=== PATIENT | female | born 1985 ===

== ENCOUNTER 2017-09-05 05:23 | Day surgery (SDC) | payer BC ==
[2017-08-26 12:40] VITALS: BMI 37.0
[~2017-09-05] VITALS: Ht 154.9 cm; Wt 89.5 kg
[~2017-09-05 05:23] MED LIST: ALPR1TAB3 PO; ALROPS OP; ARMO150T4 PO; CLR10 PO; CRFL PO; CYCL0.052 OP; CYCL5TAB PO; DICL1GEL12 TOP; DICY10CA55 PO; DPH/ PO; DULO60CA44 PO; ERGO500037 PO; ESCI10TA17 PO; FLUT0.15; LEVO25TA5 PO; LNS1 PO; MISC4CAP PO; NF656 TOP; OLOP0.6S NAE; OXYC-57 PO; PANT40TA PO; RANI150T3 PO; TRAZ50TA35 PO
[2017-09-05 05:50] VITALS: BP 113/65; PULSE 89; TEMP 36.9; O2SAT 97; Ht 154.9 cm; Wt 89.5 kg
[2017-09-05] MEDS ORDERED: CEFAZOLIN 2000MG IV PUSH 10 ML IV SCH (06:00)
[2017-09-05] MEDS ORDERED: LACTATED RINGER'S 1000ML 1,000 ML IV SCH ×2 (06:00)
[2017-09-05] MEDS ORDERED: BUPIVACAINE 0.5 % 5 MG/1 ML MPF 30ML VIAL ONE (06:40)
[2017-09-05] MEDS ORDERED: EpINEphrine INJ 1MG/ML AMP 1 MG/ML AMP ONE (06:41)
[2017-09-05] MEDS ORDERED: LIDOCAINE HCL 2% 2 ML VIAL (20MG/ML) ONE (06:47)
[2017-09-05] MEDS ORDERED: ROCURONIUM BROMIDE 10 MG/ML 5 ML VIAL IV ONE (06:47)
[2017-09-05] MEDS ORDERED: PROPOFOL IV EMULSION 10 MG/ML 20 ML VIAL IV ONE (06:47)
[2017-09-05] MEDS ORDERED: FENTANYL CITRATE INJ 50 MCG/1 ML 2 ML VIAL ONE (06:48)
[2017-09-05] MEDS ORDERED: MIDAZOLAM HCL 1 MG/ML 2ML VIAL ONE (06:48)
--- NOTE | 2017-09-05 06:51 | History & Physical Bridge Note ---
H&P Re-Evaluation Bridge Note: I have examined the patient, reviewed the History & Physical and in the interval since the performance of the History & Physical I have noted the following changes of clinical significance: No changes noted
[2017-09-05] MEDS ORDERED: ONDANSETRON INJ 2 MG/ML 2 ML VIAL ONE (07:21)
[2017-09-05] MEDS ORDERED: DEXAMETHASONE SOD INJ 4 MG/ML VIAL ONE (07:21)
[2017-09-05] MEDS ORDERED: NEOSTIGMINE METHYLSULFATE 5 MG/5 ML SYR ONE (07:29)
[2017-09-05] MEDS ORDERED: GLYCOPYRROLATE INJ 0.2 MG/ML VIAL ONE (07:29)
[2017-09-05] MEDS ORDERED: SODIUM CHLORIDE 0.9% 1000ML 1,000 ML IV SCH (07:57)
[2017-09-05] MEDS ORDERED: ONDANSETRON INJ 2 MG/ML 2 ML VIAL IV PRN ×2 (08:00→08:15)
--- NOTE | 2017-09-05 08:02 | Discharge Instructions ---
Discharge Instructions Date of Service Sep 05, 2017. Admission Reason for Admission: Abdominal Pain Discharge Discharge Diagnosis / Problem: Abdominal Pain Discharge Goals Goal(s): Improve function Activity Recommendations Activity Limitations: as noted below Lifting Limitations: no more than 10 pounds Exercise/Sports Limitations: until after follow-up appointment May Resume Sexual Activity: after follow-up appointment Shower/Bathe: tomorrow Driving or Machine Use: resume 1 day after discharge . Instructions / Follow-Up Instructions / Follow-Up Please follow-up with Dr. Herbert in the office in 1-2 weeks. Please call the office at [phone] to make a follow-up appointment if you do not have one already. Please call the office with any questions or concerns. Current Hospital Diet Patient's current hospital diet: Discharge Diet Recommended Diet: Regular Diet Procedures Procedures Performed: Diagnostic laparoscopy Pending Studies Studies pending at discharge: no Medical Emergencies . Who to Call and When: Medical Emergencies: If at any time you feel your situation is an emergency, please call 911 immediately. . Non-Emergent Contact Non-Emergency issues call your: Primary Care Provider, Surgeon Call Non-Emergent contact if: temperature is above 101.5, your pain is not controlled, wound has increased drainage, wound has increased redness . "Provider Documentation" section prepared by Tati Siu. . VTE Core Measure Inpt VTE Proph given/why not?: SCD's [place] Drug Monitoring Program Search Results: patient reviewed within database, no issues identified
[2017-09-05] MEDS ORDERED: HYDROmorphone INJ 1 MG/ML SYR ONE (08:05)
[2017-09-05] MEDS ORDERED: OXYC-57 PO (08:09)
--- NOTE | 2017-09-05 08:12 | [facility] Operative Report ---
Operative Report Operative Date Sep 05, 2017. Pre-Operative Diagnosis Abdominal pain Post-Operative Diagnosis Same as preop Procedure(s) Performed Diagnostic laparoscopy Surgeon Dr. Herbert [facility] Associate Surgeon(s) Zach Siu PA-C Estimated Blood Loss 3 cc Findings normal post sub-total colectomy anatomy. reason for pain not identified Specimens None, as per surgeon Complication(s) None Disposition Recovery Room / PACU Description of Procedure After informed consent was obtained the patient was taken to the operating room and placed in a supine position. After successful intubation the abdomen was sterilely prepped and draped in usual fashion. An infraumbilical incision through her old scar line was made with an 11 blade scalpel and carried down through the soft tissue using electrocautery. The anterior rectus fascia was opened using electrocautery and 2 #0 Vicryl stay sutures were placed. The peritoneum was elevated with hemostats and incised under direct vision using a Metzenbaum scissor. A finger sweep was performed. A 12 mm Wood trocar was placed and the abdomen was insufflated to 18 mmHg. The laparoscope was inserted and the abdomen was examined in 360. A right lower quadrant 5 mm trocar was placed through her old scar line as well. We looked around the entire abdomen. We ran the small bowel looked at the liver stomach peritoneal surfaces small bowel uterus ovaries etc. Everything was completely pristine. There was no adhesions whatsoever. There were no hernias or other explanation for her abdominal pain. Once I was satisfied with everything I removed the trochars and desufflated the abdomen. The fascia of the camera port was closed using 0 Vicryl in [id number] fashion. All the wounds were irrigated and closed using 4-0 Monocryl. Marcaine was injected around the incisions for postoperative analgesia and skin glue used as a dressing. Patient was awakened , extubated and transferred recovery in stable condition I attest to the content of the Intraoperative Record and any orders documented therein. Any exceptions are noted below.
[2017-09-05] MEDS ORDERED: FLUMAZENIL 0.1 MG/1 ML 10 ML VIAL IV PRN (08:15)
[2017-09-05] MEDS ORDERED: NALOXONE HCL 0.4 MG/1 ML VIAL/CARP IV PRN (08:15)
[2017-09-05] MEDS ORDERED: PROMETHAZINE HCL INJ 12.5 MG in SODIUM CHLORIDE 0.9% 50ML 50 ML IV PRN (08:15)
[2017-09-05] MEDS ORDERED: LABETALOL HCL IV 5 MG/ML 20ML IV PRN (08:15)
[2017-09-05] MEDS ORDERED: ATROPINE SULFATE 0.1 MG/ML 5ML SYR IV PRN (08:15)
[2017-09-05] MEDS ORDERED: EpHEDrine SULFATE INJ 50 MG/ML AMP IV PRN (08:15)
[2017-09-05] MEDS: HYDROmorphone INJ 1 MG/ML SYR IV PRN ×4 (08:25→08:40)
[2017-09-05] MEDS ORDERED: OXYCODONE/ACETAMINOPHEN 5-325 TAB PO PRN ×2 (08:30)
--- NOTE | 2017-09-05 08:44 | Anesthesiology Progress Note ---
Anesthesia Post Op Note Date & Time Sep 05, 2017 at 08:44 Vital Signs Pain Intensity: 7.0 Vital Signs Past 12 Hours Date Time Temp Pulse Resp B/P (MAP) Pulse Ox O2 Delivery O2 Flow Rate FiO2 09/05/17 08:25 88 16 122/75 98 Room Air 09/05/17 08:15 82 16 123/76 98 Oxymask 10 09/05/17 08:05 87 16 130/80 100 Oxymask 10 09/05/17 07:59 37.1 94 16 128/74 93 Oxymask 10 09/05/17 05:50 36.9 89 18 113/65 (81) 97 Room Air Notes Mental Status: alert / awake / arousable, participated in evaluation Pt Amnestic to Procedure: Yes Nausea / Vomiting: adequately controlled Pain: adequately controlled Airway Patency, RR, SpO2: stable & adequate BP & HR: stable & adequate Hydration State: stable & adequate Anesthetic Complications: no major complications apparent
[2017-09-05 09:35] VITALS: BP 118/55; PULSE 84; O2SAT 96
[2017-09-05 10:12] VITALS: BP 104/56; PULSE 98; O2SAT 98
[2017-09-05 10:45] VITALS: BP 104/59; PULSE 82; TEMP 37; O2SAT 95
== END 2017-09-05 10:52 | disposition home or self-care (01) ==
LOC: C.ACU 05:23
PROVIDERS: ATTEND Surgery
DX: R10.9 Unspecified abdominal pain (principal); Z90.49 Acquired absence of other specified parts of digestive tract; Z87.19 Personal history of other diseases of the digestive system; M79.7 Fibromyalgia; Z79.899 Other long term (current) drug therapy